=== PATIENT | male | born 1960 | race Caucasian/White ===

== ENCOUNTER 2017-11-25 22:27 | Inpatient (IN) | payer MEDICAID, OTHER ==
[2017-11-25] MEDS ORDERED: 50% Dextrose in Water 50 ML Syringe ONE (22:39)
--- NOTE | 2017-11-26 00:15 | EDM.PDOC ---
ED HPI GENERAL MEDICAL PROBLEM - General Chief Complaint: Neurological Problem Stated Complaint: [facility] Time Seen by Provider: 11/25/17 23:15 - History of Present Illness INITIAL COMMENTS - FREE TEXT/NARRATIVE: documentation dictated Treatments BODY PAINTER: Reports: IV/IO, Oxygen, Other (see below) Other Treatments BODY PAINTER: narcan - Related Data Allergies Allergy/AdvReac Type Severity Reaction Status Date / Time Penicillins Allergy Cannot Verified 11/25/17 22:33 Remember Home Meds: Home Meds ALPRAZolam [Xanax] 1 mg PO BEDTIME 11/30/13 [History] Hydrocodone/Acetaminophen [Hydrocodon-Acetaminophn 10-325] 1 - 2 tab PO Q6H PRN 11/30/13 [History] Hydrocodone/Acetaminophen [Hydrocodone-Acetaminophen 5-325] 1 each PO Q6HR PRN # 20 tablet 11/30/13 [Rx] Past Medical History Other HEENT History: unknown Other Cardiovascular History: unknown Other Respiratory History: unknown Other Gastrointestinal History: unknwon Social & Family History - Tobacco Use Smoking Status *Q: Unknown Ever Smoked ED ROS GENERAL - Review of Systems Review Of Systems: Unable To Obtain - Physical Exam Exam: See Below Course - Vital Signs Last Recorded V/S: Last Vital Signs Temp 37.2 C 11/25/17 22:33 Pulse 84 11/26/17 00:01 Resp 35 H 11/26/17 00:01 BP 157/116 H 11/26/17 00:00 Pulse Ox 100 11/26/17 00:01 - Orders/Labs/Meds Orders: Active Orders 24 hr Category Date Time Status Cervical Spine wo Cont [CT] Routine Exams 11/25/17 22:55 Taken Chest 1V Frontal [CR] Stat Exams 11/25/17 23:00 Taken Head wo Cont [CT] Routine Exams 11/25/17 22:55 Taken Labs: Laboratory Tests 11/25/17 11/25/17 11/25/17 Range/Units 22:30 22:30 22:30 WBC (4.23-9.07) K/mm3 RBC (4.63-6.08) M/mm3 Hgb (13.7-17.5) gm/L Hct (40.1-51.0) % MCV (79.0-92.2) fl MCH (25.7-32.2) pg MCHC (32.2-35.5) g/dl RDW Std Deviation (35.1-43.9) fL Plt Count (163-337) K/mm3 MPV (9.4-12.3) fl Neutrophils % (Manual) (40-60) % Band Neutrophils % (0-10) % Lymphocytes % (Manual) (20-40) % Atypical Lymphs % % Monocytes % (Manual) (2-10) % Eosinophils % (Manual) (0.8-7.0) % Basophils % (Manual) (0.2-1.2) Platelet Estimate Plt Morphology Comment RBC Morph Comment PT (9.5-12.1) SECONDS INR APTT (24-31) SECONDS Sodium 144 (136-145) mEq/L Potassium 3.8 (3.5-5.1) mEq/L Chloride 109 H (98-107) mEq/L Carbon Dioxide 27 (21-32) mEq/L Anion Gap 11.8 (5-15) BUN 18 (7-18) mg/dL Creatinine 1.1 (0.7-1.3) mg/dL Est Cr Clr Drug Dosing 75.88 mL/min Estimated GFR (MDRD) > 60 (>60) mL/min BUN/Creatinine Ratio 16.4 (14-18) Glucose 74 (74-106) mg/dL POC Glucose (70-105) mg/dL Lactic Acid (0.4-2.0) mmol/L Calcium 8.8 (8.5-10.1) mg/dL Total Bilirubin 0.3 (0.2-1.0) mg/dL AST 23 (15-37) U/L ALT 30 (16-63) U/L Alkaline Phosphatase 76 (46-116) U/L Total Protein 6.6 (6.4-8.2) g/dl Albumin 3.8 (3.4-5.0) g/dl Globulin 2.8 gm/dL Albumin/Globulin Ratio 1.4 (1-2) Urine Color Yellow (Yellow) Urine Appearance Slt cloudy H (Clear) Urine pH 6.5 (5.0-8.0) Ur Specific [place] > or = 1.030 (1.005-1.030) Urine Protein Trace H (Negative) Urine Glucose (UA) Negative (Negative) Urine Ketones Negative (Negative) Urine Occult Blood Negative (Negative) Urine Nitrite Negative (Negative) Urine Bilirubin Negative (Negative) Urine Urobilinogen 0.2 (0.2-1.0) Ur Leukocyte Esterase Negative (Negative) Urine Opiates Screen Negative (NEGATIVE) Ur Buprenorphine Scrn Negative (NEGATIVE) Ur Oxycodone Screen Presumptive positive H (NEGATIVE) Urine Methadone Screen Negative (NEGATIVE) Ur Propoxyphene Screen Negative (NEGATIVE) Ur Barbiturates Screen Negative (NEGATIVE) Ur Tricyclics Screen Negative (NEGATIVE) Ur Phencyclidine Scrn Negative (NEGATIVE) Ur Amphetamine Screen Negative (NEGATIVE) U Methamphetamines Scrn Negative (NEGATIVE) U Benzodiazepines Scrn Presumptive positive H (NEGATIVE) U Cocaine Metab Screen Negative (NEGATIVE) U Marijuana (THC) Screen Negative (NEGATIVE) Ethyl Alcohol 0.00 (0.00) gm% 11/25/17 11/25/17 11/25/17 Range/Units 22:30 22:30 22:35 WBC 6.98 (4.23-9.07) K/mm3 RBC 4.59 L (4.63-6.08) M/mm3 Hgb 14.0 (13.7-17.5) gm/L Hct 42.1 (40.1-51.0) % MCV 91.7 (79.0-92.2) fl MCH 30.5 (25.7-32.2) pg MCHC 33.3 (32.2-35.5) g/dl RDW Std Deviation 44.1 H (35.1-43.9) fL Plt Count 278 (163-337) K/mm3 MPV 9.5 (9.4-12.3) fl Neutrophils % (Manual) 66 H (40-60) % Band Neutrophils % 0 (0-10) % Lymphocytes % (Manual) 22 (20-40) % Atypical Lymphs % 0 % Monocytes % (Manual) 6 (2-10) % Eosinophils % (Manual) 6 (0.8-7.0) % Basophils % (Manual) 0 L (0.2-1.2) Platelet Estimate Adequate Plt Morphology Comment Normal RBC Morph Comment Normal PT 11.0 (9.5-12.1) SECONDS INR 1.01 APTT 25 (24-31) SECONDS Sodium (136-145) mEq/L Potassium (3.5-5.1) mEq/L Chloride (98-107) mEq/L Carbon Dioxide (21-32) mEq/L Anion Gap (5-15) BUN (7-18) mg/dL Creatinine (0.7-1.3) mg/dL Est Cr Clr Drug Dosing mL/min Estimated GFR (MDRD) (>60) mL/min BUN/Creatinine Ratio (14-18) Glucose (74-106) mg/dL POC Glucose 64 L (70-105) mg/dL Lactic Acid (0.4-2.0) mmol/L Calcium (8.5-10.1) mg/dL Total Bilirubin (0.2-1.0) mg/dL AST (15-37) U/L ALT (16-63) U/L Alkaline Phosphatase (46-116) U/L Total Protein (6.4-8.2) g/dl Albumin (3.4-5.0) g/dl Globulin gm/dL Albumin/Globulin Ratio (1-2) Urine Color (Yellow) Urine Appearance (Clear) Urine pH (5.0-8.0) Ur Specific [place] (1.005-1.030) Urine Protein (Negative) Urine Glucose (UA) (Negative) Urine Ketones (Negative) Urine Occult Blood (Negative) Urine Nitrite (Negative) Urine Bilirubin (Negative) Urine Urobilinogen (0.2-1.0) Ur Leukocyte Esterase (Negative) Urine Opiates Screen (NEGATIVE) Ur Buprenorphine Scrn (NEGATIVE) Ur Oxycodone Screen (NEGATIVE) Urine Methadone Screen (NEGATIVE) Ur Propoxyphene Screen (NEGATIVE) Ur Barbiturates Screen (NEGATIVE) Ur Tricyclics Screen (NEGATIVE) Ur Phencyclidine Scrn (NEGATIVE) Ur Amphetamine Screen (NEGATIVE) U Methamphetamines Scrn (NEGATIVE) U Benzodiazepines Scrn (NEGATIVE) U Cocaine Metab Screen (NEGATIVE) U Marijuana (THC) Screen (NEGATIVE) Ethyl Alcohol (0.00) gm% 11/25/17 Range/Units 23:05 WBC (4.23-9.07) K/mm3 RBC (4.63-6.08) M/mm3 Hgb (13.7-17.5) gm/L Hct (40.1-51.0) % MCV (79.0-92.2) fl MCH (25.7-32.2) pg MCHC (32.2-35.5) g/dl RDW Std Deviation (35.1-43.9) fL Plt Count (163-337) K/mm3 MPV (9.4-12.3) fl Neutrophils % (Manual) (40-60) % Band Neutrophils % (0-10) % Lymphocytes % (Manual) (20-40) % Atypical Lymphs % % Monocytes % (Manual) (2-10) % Eosinophils % (Manual) (0.8-7.0) % Basophils % (Manual) (0.2-1.2) Platelet Estimate Plt Morphology Comment RBC Morph Comment PT (9.5-12.1) SECONDS INR APTT (24-31) SECONDS Sodium (136-145) mEq/L Potassium (3.5-5.1) mEq/L Chloride (98-107) mEq/L Carbon Dioxide (21-32) mEq/L Anion Gap (5-15) BUN (7-18) mg/dL Creatinine (0.7-1.3) mg/dL Est Cr Clr Drug Dosing mL/min Estimated GFR (MDRD) (>60) mL/min BUN/Creatinine Ratio (14-18) Glucose (74-106) mg/dL POC Glucose (70-105) mg/dL Lactic Acid 1.7 (0.4-2.0) mmol/L Calcium (8.5-10.1) mg/dL Total Bilirubin (0.2-1.0) mg/dL AST (15-37) U/L ALT (16-63) U/L Alkaline Phosphatase (46-116) U/L Total Protein (6.4-8.2) g/dl Albumin (3.4-5.0) g/dl Globulin gm/dL Albumin/Globulin Ratio (1-2) Urine Color (Yellow) Urine Appearance (Clear) Urine pH (5.0-8.0) Ur Specific [place] (1.005-1.030) Urine Protein (Negative) Urine Glucose (UA) (Negative) Urine Ketones (Negative) Urine Occult Blood (Negative) Urine Nitrite (Negative) Urine Bilirubin (Negative) Urine Urobilinogen (0.2-1.0) Ur Leukocyte Esterase (Negative) Urine Opiates Screen (NEGATIVE) Ur Buprenorphine Scrn (NEGATIVE) Ur Oxycodone Screen (NEGATIVE) Urine Methadone Screen (NEGATIVE) Ur Propoxyphene Screen (NEGATIVE) Ur Barbiturates Screen (NEGATIVE) Ur Tricyclics Screen (NEGATIVE) Ur Phencyclidine Scrn (NEGATIVE) Ur Amphetamine Screen (NEGATIVE) U Methamphetamines Scrn (NEGATIVE) U Benzodiazepines Scrn (NEGATIVE) U Cocaine Metab Screen (NEGATIVE) U Marijuana (THC) Screen (NEGATIVE) Ethyl Alcohol (0.00) gm% Meds: Medications Discontinued Medications Generic Name Dose Route Start Last Admin Trade Name Freq PRN Reason Stop Dose Admin Dextrose/Water Confirm 11/25/17 22:39 Dextrose 50% In Water Administered 11/25/17 22:40 Dose 50 ml .ROUTE .STK-MED ONE Propofol Confirm 11/25/17 22:54 Diprivan 100 Ml Administered 11/25/17 22:55 Dose 100 mls @ as directed .ROUTE .STK-MED ONE Departure - Departure Time of Disposition: 00:15 Disposition: Admitted As Inpatient 67 Condition: Poor Clinical Impression: Coma of unknown cause - Discharge Information *PRESCRIPTION DRUG MONITORING PROGRAM REVIEWED*: Not Applicable *COPY OF PRESCRIPTION DRUG MONITORING REPORT IN PATIENT ODALYS: Not Applicable Referrals: PCP,None [Primary Care Provider] - - My Orders Last 24 Hours: My Active Orders 11/25/17 22:55 Cervical Spine wo Cont [CT] Routine Head wo Cont [CT] Routine 11/25/17 23:00 Chest 1V Frontal [CR] Stat - Assessment/Plan Last 24 Hours: My Active Orders 11/25/17 22:55 Cervical Spine wo Cont [CT] Routine Head wo Cont [CT] Routine 11/25/17 23:00 Chest 1V Frontal [CR] Stat
[2017-11-26] MEDS ORDERED: Albuterol/Ipratropium 3.0-0.5 MG/3 ML Neb Soln NEB PRN (00:27)
[2017-11-26] MEDS ORDERED: Acetaminophen 325 MG Tab PO PRN (00:27)
[2017-11-26] MEDS ORDERED: Polyethylene Glycol 3350 Powder 17 GM Packet PO PRN (00:27)
[2017-11-26] MEDS ORDERED: Promethazine 12.5 MG in Sodium Chloride 0.9% 50 ML IV PRN (00:27)
[2017-11-26] MEDS ORDERED: Magnesium Hydroxide 400 MG/5 ML Susp 30 ML Cup PO PRN (00:27)
[2017-11-26] MEDS ORDERED: Docusate Sodium 100 MG Cap PO PRN (00:27)
[2017-11-26] MEDS ORDERED: Ondansetron 4 MG/2 ML SDV IV PRN (00:27)
[2017-11-26] MEDS ORDERED: HYDROmorphone 0.5 MG/0.5 ML Syringe IVPUSH PRN (00:27)
[2017-11-26] MEDS ORDERED: LORazepam 2 MG/ML SDV IV PRN (00:27)
[2017-11-26] MEDS ORDERED: Bisacodyl 5 MG Tab PO PRN (00:27)
[2017-11-26] MEDS ORDERED: Metoprolol Tartrate 5 MG/5 ML SDV IVPUSH PRN (00:30)
[2017-11-26] MEDS ORDERED: Nicotine 21 MG/24 Hr Patch TRDERM PRN ×2 (00:30→00:33)
[2017-11-26] MEDS ORDERED: hydrALAZINE 20 MG/ML SDV IVPUSH PRN (00:30)
[2017-11-26] MEDS ORDERED: Sodium Chloride 0.9% 1,000 ML IV ONE (00:32)
[2017-11-26] MEDS ORDERED: cloNIDine 0.1 MG Tab PO PRN (00:33)
[2017-11-26] MEDS ORDERED: Haloperidol Lactate 5 MG/ML SDV IM PRN (00:33)
--- NOTE | 2017-11-26 00:40 | PCM.HP ---
H&P History of Present Illness - General Date of Service: 11/26/17 Admit Problem/Dx: Admission Diagnosis/Problem Admission Diagnosis/Problem Coma Source of Information: Provider History Limitations: Reports: Altered Mental Status - History of Present Illness Initial Comments - Free Text/Narative: This is a 56 yo with past medical hx/o anxiety and chronic pain syndrome who was brought in by EMS found unresponsive outside his hotel. In ED, he was difficult to arouse and unable to protect to his airway and therefore he was intubated currently being bagged for respiratory support. His initial labs in ED shows in ED shows a fairly unremarkable CBC and CMP. His UA is not suggestive of UTI. His UDS is presumptive positive for Oxycodone and Benzodiazepine. No family is present at bedside and HPI is very minimal. Patient will be placed on mechanical ventilation and he will be moved to unit for further management. - Related Data Allergies/Adverse Reactions: Allergies Allergy/AdvReac Type Severity Reaction Status Date / Time Penicillins Allergy Cannot Verified 11/25/17 22:33 Remember Home Medications: Home Meds ALPRAZolam [Xanax] 1 mg PO BEDTIME 11/30/13 [History] Hydrocodone/Acetaminophen [Hydrocodon-Acetaminophn 10-325] 1 - 2 tab PO Q6H PRN 11/30/13 [History] Hydrocodone/Acetaminophen [Hydrocodone-Acetaminophen 5-325] 1 each PO Q6HR PRN # 20 tablet 11/30/13 [Rx] oxyCODONE HCl/Acetaminophen [Oxycodone-Acetaminophen 10-300] 1 each PO QID 11/26 [History] Past Medical History Other HEENT History: unknown Other Cardiovascular History: unknown Other Respiratory History: unknown Other Gastrointestinal History: unknwon Social & Family History - Tobacco Use Smoking Status *Q: Unknown Ever Smoked H&P Review of Systems - Review of Systems: Review Of Systems: Unable To Obtain Exam - Exam Exam: See Below - Vital Signs Vital Signs: Last Vital Signs Temp 37.2 C 11/25/17 22:33 Pulse 84 11/26/17 00:01 Resp 35 H 11/26/17 00:01 BP 157/116 H 11/26/17 00:00 Pulse Ox 100 11/26/17 00:01 Weight: 72.575 kg - Exam General: Obtunded HEENT: Pupils Equal, Pupils Reactive Lungs: Normal Respiratory Effort, Decreased Breath Sounds Cardiovascular: Regular Rate, Regular Rhythm GI/Abdominal Exam: Normal Bowel Sounds, Soft (Male) Exam: Other (indwelling harris catheter) Back Exam: Other (deferred) Extremities: Normal Inspection, Normal Range of Motion, No Pedal Edema, Normal Capillary Refill Peripheral Pulses: 3+: Posterior Tibial (L), Posterior Tibial (R), Dorsalis Pedis (L), Dorsalis Pedis (R) Skin: Warm, Dry, Intact Neuro Extensive - Mental Status: Other (sedated and intubated) Neuro Extensive - Motor, Sensory, Reflexes: Other (sedated and intubated) Psychiatric: Other (sedated and intubated) - Patient Data Lab Results Last 24 hrs: Laboratory Results - last 24 hr 11/25/17 11/25/17 11/25/17 Range/Units 22:30 22:30 22:30 WBC (4.23-9.07) K/mm3 RBC (4.63-6.08) M/mm3 Hgb (13.7-17.5) gm/L Hct (40.1-51.0) % MCV (79.0-92.2) fl MCH (25.7-32.2) pg MCHC (32.2-35.5) g/dl RDW Std Deviation (35.1-43.9) fL Plt Count (163-337) K/mm3 MPV (9.4-12.3) fl Neutrophils % (Manual) (40-60) % Band Neutrophils % (0-10) % Lymphocytes % (Manual) (20-40) % Atypical Lymphs % % Monocytes % (Manual) (2-10) % Eosinophils % (Manual) (0.8-7.0) % Basophils % (Manual) (0.2-1.2) Platelet Estimate Plt Morphology Comment RBC Morph Comment PT (9.5-12.1) SECONDS INR APTT (24-31) SECONDS Sodium 144 (136-145) mEq/L Potassium 3.8 (3.5-5.1) mEq/L Chloride 109 H (98-107) mEq/L Carbon Dioxide 27 (21-32) mEq/L Anion Gap 11.8 (5-15) BUN 18 (7-18) mg/dL Creatinine 1.1 (0.7-1.3) mg/dL Est Cr Clr Drug Dosing 75.88 mL/min Estimated GFR (MDRD) > 60 (>60) mL/min BUN/Creatinine Ratio 16.4 (14-18) Glucose 74 (74-106) mg/dL POC Glucose (70-105) mg/dL Lactic Acid (0.4-2.0) mmol/L Calcium 8.8 (8.5-10.1) mg/dL Total Bilirubin 0.3 (0.2-1.0) mg/dL AST 23 (15-37) U/L ALT 30 (16-63) U/L Alkaline Phosphatase 76 (46-116) U/L Total Protein 6.6 (6.4-8.2) g/dl Albumin 3.8 (3.4-5.0) g/dl Globulin 2.8 gm/dL Albumin/Globulin Ratio 1.4 (1-2) Urine Color Yellow (Yellow) Urine Appearance Slt cloudy H (Clear) Urine pH 6.5 (5.0-8.0) Ur Specific Watson > or = 1.030 (1.005-1.030) Urine Protein Trace H (Negative) Urine Glucose (UA) Negative (Negative) Urine Ketones Negative (Negative) Urine Occult Blood Negative (Negative) Urine Nitrite Negative (Negative) Urine Bilirubin Negative (Negative) Urine Urobilinogen 0.2 (0.2-1.0) Ur Leukocyte Esterase Negative (Negative) Urine Opiates Screen Negative (NEGATIVE) Ur Buprenorphine Scrn Negative (NEGATIVE) Ur Oxycodone Screen Presumptive positive H (NEGATIVE) Urine Methadone Screen Negative (NEGATIVE) Ur Propoxyphene Screen Negative (NEGATIVE) Ur Barbiturates Screen Negative (NEGATIVE) Ur Tricyclics Screen Negative (NEGATIVE) Ur Phencyclidine Scrn Negative (NEGATIVE) Ur Amphetamine Screen Negative (NEGATIVE) U Methamphetamines Scrn Negative (NEGATIVE) U Benzodiazepines Scrn Presumptive positive H (NEGATIVE) U Cocaine Metab Screen Negative (NEGATIVE) U Marijuana (THC) Screen Negative (NEGATIVE) Ethyl Alcohol 0.00 (0.00) gm% 11/25/17 11/25/17 11/25/17 Range/Units 22:30 22:30 22:35 WBC 6.98 (4.23-9.07) K/mm3 RBC 4.59 L (4.63-6.08) M/mm3 Hgb 14.0 (13.7-17.5) gm/L Hct 42.1 (40.1-51.0) % MCV 91.7 (79.0-92.2) fl MCH 30.5 (25.7-32.2) pg MCHC 33.3 (32.2-35.5) g/dl RDW Std Deviation 44.1 H (35.1-43.9) fL Plt Count 278 (163-337) K/mm3 MPV 9.5 (9.4-12.3) fl Neutrophils % (Manual) 66 H (40-60) % Band Neutrophils % 0 (0-10) % Lymphocytes % (Manual) 22 (20-40) % Atypical Lymphs % 0 % Monocytes % (Manual) 6 (2-10) % Eosinophils % (Manual) 6 (0.8-7.0) % Basophils % (Manual) 0 L (0.2-1.2) Platelet Estimate Adequate Plt Morphology Comment Normal RBC Morph Comment Normal PT 11.0 (9.5-12.1) SECONDS INR 1.01 APTT 25 (24-31) SECONDS Sodium (136-145) mEq/L Potassium (3.5-5.1) mEq/L Chloride (98-107) mEq/L Carbon Dioxide (21-32) mEq/L Anion Gap (5-15) BUN (7-18) mg/dL Creatinine (0.7-1.3) mg/dL Est Cr Clr Drug Dosing mL/min Estimated GFR (MDRD) (>60) mL/min BUN/Creatinine Ratio (14-18) Glucose (74-106) mg/dL POC Glucose 64 L (70-105) mg/dL Lactic Acid (0.4-2.0) mmol/L Calcium (8.5-10.1) mg/dL Total Bilirubin (0.2-1.0) mg/dL AST (15-37) U/L ALT (16-63) U/L Alkaline Phosphatase (46-116) U/L Total Protein (6.4-8.2) g/dl Albumin (3.4-5.0) g/dl Globulin gm/dL Albumin/Globulin Ratio (1-2) Urine Color (Yellow) Urine Appearance (Clear) Urine pH (5.0-8.0) Ur Specific Watson (1.005-1.030) Urine Protein (Negative) Urine Glucose (UA) (Negative) Urine Ketones (Negative) Urine Occult Blood (Negative) Urine Nitrite (Negative) Urine Bilirubin (Negative) Urine Urobilinogen (0.2-1.0) Ur Leukocyte Esterase (Negative) Urine Opiates Screen (NEGATIVE) Ur Buprenorphine Scrn (NEGATIVE) Ur Oxycodone Screen (NEGATIVE) Urine Methadone Screen (NEGATIVE) Ur Propoxyphene Screen (NEGATIVE) Ur Barbiturates Screen (NEGATIVE) Ur Tricyclics Screen (NEGATIVE) Ur Phencyclidine Scrn (NEGATIVE) Ur Amphetamine Screen (NEGATIVE) U Methamphetamines Scrn (NEGATIVE) U Benzodiazepines Scrn (NEGATIVE) U Cocaine Metab Screen (NEGATIVE) U Marijuana (THC) Screen (NEGATIVE) Ethyl Alcohol (0.00) gm% 11/25/17 Range/Units 23:05 WBC (4.23-9.07) K/mm3 RBC (4.63-6.08) M/mm3 Hgb (13.7-17.5) gm/L Hct (40.1-51.0) % MCV (79.0-92.2) fl MCH (25.7-32.2) pg MCHC (32.2-35.5) g/dl RDW Std Deviation (35.1-43.9) fL Plt Count (163-337) K/mm3 MPV (9.4-12.3) fl Neutrophils % (Manual) (40-60) % Band Neutrophils % (0-10) % Lymphocytes % (Manual) (20-40) % Atypical Lymphs % % Monocytes % (Manual) (2-10) % Eosinophils % (Manual) (0.8-7.0) % Basophils % (Manual) (0.2-1.2) Platelet Estimate Plt Morphology Comment RBC Morph Comment PT (9.5-12.1) SECONDS INR APTT (24-31) SECONDS Sodium (136-145) mEq/L Potassium (3.5-5.1) mEq/L Chloride (98-107) mEq/L Carbon Dioxide (21-32) mEq/L Anion Gap (5-15) BUN (7-18) mg/dL Creatinine (0.7-1.3) mg/dL Est Cr Clr Drug Dosing mL/min Estimated GFR (MDRD) (>60) mL/min BUN/Creatinine Ratio (14-18) Glucose (74-106) mg/dL POC Glucose (70-105) mg/dL Lactic Acid 1.7 (0.4-2.0) mmol/L Calcium (8.5-10.1) mg/dL Total Bilirubin (0.2-1.0) mg/dL AST (15-37) U/L ALT (16-63) U/L Alkaline Phosphatase (46-116) U/L Total Protein (6.4-8.2) g/dl Albumin (3.4-5.0) g/dl Globulin gm/dL Albumin/Globulin Ratio (1-2) Urine Color (Yellow) Urine Appearance (Clear) Urine pH (5.0-8.0) Ur Specific Watson (1.005-1.030) Urine Protein (Negative) Urine Glucose (UA) (Negative) Urine Ketones (Negative) Urine Occult Blood (Negative) Urine Nitrite (Negative) Urine Bilirubin (Negative) Urine Urobilinogen (0.2-1.0) Ur Leukocyte Esterase (Negative) Urine Opiates Screen (NEGATIVE) Ur Buprenorphine Scrn (NEGATIVE) Ur Oxycodone Screen (NEGATIVE) Urine Methadone Screen (NEGATIVE) Ur Propoxyphene Screen (NEGATIVE) Ur Barbiturates Screen (NEGATIVE) Ur Tricyclics Screen (NEGATIVE) Ur Phencyclidine Scrn (NEGATIVE) Ur Amphetamine Screen (NEGATIVE) U Methamphetamines Scrn (NEGATIVE) U Benzodiazepines Scrn (NEGATIVE) U Cocaine Metab Screen (NEGATIVE) U Marijuana (THC) Screen (NEGATIVE) Ethyl Alcohol (0.00) gm% Result Diagrams: 11/26/17 05:35 11/26/17 05:35 Problem List Initiated/Reviewed/Updated: Yes Orders Last 24hrs: Active Orders 24 hr Category Date Time Status Admission Status [Patient Status] [ADT] Routine ADT 11/26/17 00:17 Active Cardiac Monitoring [RC] CONTINUOUS Care 11/26/17 00:28 Ordered Height and Weight [RC] DAILY Care 11/26/17 00:27 Ordered Intake and Output [RC] QSHIFT Care 11/26/17 00:28 Ordered Notify Provider [RC] PRN Care 11/26/17 00:33 Ordered Oxygen Therapy [RC] PRN Care 11/26/17 00:27 Ordered RASS Sedation Scale [RC] ASDIRECTED Care 11/26/17 00:31 Ordered RT Aerosol Therapy [RC] ASDIRECTED Care 11/26/17 00:29 Ordered Up With Assistance [RC] ASDIRECTED Care 11/26/17 00:27 Ordered Up ad Omriah [RC] ASDIRECTED Care 11/26/17 00:27 Ordered VTE/DVT Education [RC] PER UNIT ROUTINE Care 11/26/17 00:27 Ordered Vital Signs [RC] Q4H Care 11/26/17 00:27 Ordered Consult to Case Management [CONS] Routine Cons 11/26/17 00:27 Ordered Consult to Research Investigator [CONS] Routine Cons 11/26/17 00:27 Ordered Consult to Spiritual Care [CONS] Routine Cons 11/26/17 00:27 Ordered Respiratory Care Assess and Treatment [CONS] Routine Cons 11/26/17 00:27 Ordered Nothing per Oral Now Diet [DIET] Diet 11/26/17 Breakfast Ordered Cervical Spine wo Cont [CT] Routine Exams 11/25/17 22:55 Taken Chest 1V Frontal [CR] Stat Exams 11/25/17 23:00 Taken Head wo Cont [CT] Routine Exams 11/25/17 22:55 Taken CBC WITH AUTO DIFF [HEME] AM Lab 11/26/17 05:11 Ordered CBC WITH AUTO DIFF [HEME] AM Lab 11/27/17 05:11 Ordered CBC WITH AUTO DIFF [HEME] AM Lab 11/28/17 05:11 Ordered CBC WITH AUTO DIFF [HEME] AM Lab 11/29/17 05:11 Ordered CBC WITH AUTO DIFF [HEME] AM Lab 11/30/17 05:11 Ordered COMPREHENSIVE METABOLIC PN,CMP [CHEM] AM Lab 11/26/17 05:11 Ordered MAGNESIUM [CHEM] AM Lab 11/26/17 05:11 Ordered MAGNESIUM [CHEM] AM Lab 11/27/17 05:11 Ordered MAGNESIUM [CHEM] AM Lab 11/28/17 05:11 Ordered MAGNESIUM [CHEM] AM Lab 11/29/17 05:11 Ordered MAGNESIUM [CHEM] AM Lab 11/30/17 05:11 Ordered Acetaminophen [Tylenol] Med 11/26/17 00:27 Ordered 650 mg PO Q4H PRN Acetaminophen/HYDROcodone [[place] 325-5 MG] Med 11/26/17 00:27 Ordered 1 tab PO Q4H PRN Albuterol/Ipratropium [DuoNeb 3.0-0.5 MG/3 ML] Med 11/26/17 00:27 Ordered 3 ml NEB Q4H PRN Bisacodyl [Dulcolax] Med 11/26/17 00:27 Ordered 5 mg PO DAILY PRN Docusate Sodium [Colace] Med 11/26/17 00:27 Ordered 100 mg PO BID PRN Docusate Sodium/Sennosides [Senna Plus] Med 11/26/17 00:27 Ordered 1 tab PO BID PRN Enoxaparin [Lovenox] Med 11/26/17 09:00 Ordered 30 mg SUBCUT DAILY HYDROmorphone [Dilaudid] Med 11/26/17 00:27 Ordered 0.25 mg IVPUSH Q2H PRN Haloperidol Lactate [Haldol] Med 11/26/17 00:33 Ordered 2 mg IM Q4H PRN LORazepam [Ativan] Med 11/26/17 00:27 Ordered 1 mg IV Q6H PRN LORazepam [Ativan] Med 11/26/17 00:30 Ordered 2 mg IVPUSH Q4H PRN Lactated Ringers @ 125 MLS/HR(1000ml) Med 11/26/17 00:30 Ordered Lactated Ringers [Ringers, Lactated] 1,000 ml IV ASDIRECTED Magnesium Hydroxide [Milk of Magnesia] Med 11/26/17 00:27 Ordered 30 ml PO Q12H PRN Magnesium Rep Pharmacy to Dose [Pharmacy to Dose - Med 11/26/17 00:30 Ordered Magnesium Replacement] 1 dose .XX ASDIRECTED Metoprolol Tartrate [Lopressor] Med 11/26/17 00:30 Ordered 5 mg IVPUSH Q4H PRN Nicotine [Habitrol] Med 11/26/17 00:30 Ordered 21 mg TRDERM DAILY PRN Nicotine [Habitrol] Med 11/26/17 00:33 Ordered 21 mg TRDERM DAILY PRN Ondansetron [Zofran] Med 11/26/17 00:27 Ordered 4 mg IV Q6H PRN Pantoprazole [ProTONIX IV] 80 mg Med 11/26/17 00:45 Ordered Sodium Chloride 0.9% [Normal Saline] 100 ml IV Q10H Polyethylene Glycol 3350 [MiraLAX] Med 11/26/17 00:27 Ordered 17 gm PO DAILY PRN Potassium Rep Pharmacy to Dose [Pharmacy to Dose - Med 11/26/17 00:30 Ordered Potassium Replacement] 1 dose .XX ASDIRECTED Promethazine [Phenergan] 12.5 mg Med 11/26/17 00:27 Ordered Sodium Chloride 0.9% [Normal Saline] 50 ml IV Q6H Sodium Chloride 0.9% [Normal Saline] 1,000 ml Med 11/26/17 00:32 Ordered IV ONETIME cloNIDine [Catapres] Med 11/26/17 00:33 Ordered 0.1 mg PO Q4H PRN hydrALAZINE [Apresoline] Med 11/26/17 00:30 Ordered 20 mg IVPUSH Q4H PRN Seizure Precautions [OM.PC] Routine Oth 11/26/17 00:33 Ordered Resuscitation Status Routine Resus Stat 11/26/17 00:27 Ordered Medication Orders Acetaminophen (Tylenol) 650 mg PO Q4H PRN PRN Reason: Pain (Mild 1-3)/fever Hydrocodone Bitart/Acetaminophen ([place] 325-5 Mg) 1 tab PO Q4H PRN PRN Reason: Pain (moderate 4-6) Albuterol/Ipratropium (Duoneb 3.0-0.5 Mg/3 Ml) 3 ml NEB Q4H PRN PRN Reason: Shortness Of Breath/wheezing Bisacodyl (Dulcolax) 5 mg PO DAILY PRN PRN Reason: Constipation Docusate Sodium (Colace) 100 mg PO BID PRN PRN Reason: Constipation Enoxaparin Sodium (Lovenox) 30 mg SUBCUT DAILY JUSTIN Hydralazine HCl (Apresoline) 20 mg IVPUSH Q4H PRN PRN Reason: Hypertension Hydromorphone HCl (Dilaudid) 0.25 mg IVPUSH Q2H PRN PRN Reason: Pain (severe 7-10) Lactated Ringer's (Ringers, Lactated) 1,000 mls @ 125 mls/hr IV ASDIRECTED JUSTIN Promethazine HCl 12.5 mg/ (Sodium Chloride) 50.5 mls @ 100 mls/hr IV Q6H PRN PRN Reason: Nausea/Vomiting Pantoprazole Sodium 80 mg/ (Sodium Chloride) 100 mls @ 25 mls/hr IV Q10H JUSTIN Lorazepam (Ativan) 1 mg IV Q6H PRN PRN Reason: Anxiety Lorazepam (Ativan) 2 mg IVPUSH Q4H PRN PRN Reason: Seizures Magnesium Hydroxide (Milk Of Magnesia) 30 ml PO Q12H PRN PRN Reason: Constipation Magnesium Sulfate (Pharmacy To Dose - Magnesium Replacement) 1 dose .XX ASDIRECTED [facility] Metoprolol Tartrate (Lopressor) 5 mg IVPUSH Q4H PRN PRN Reason: Tachycardia Nicotine (Habitrol) 21 mg TRDERM DAILY PRN PRN Reason: Nicotine Dependence Ondansetron HCl (Zofran) 4 mg IV Q6H PRN PRN Reason: Nausea/Vomiting Polyethylene Glycol (Miralax) 17 gm PO DAILY PRN PRN Reason: Constipation Potassium Chloride (Pharmacy To Dose - Potassium Replacement) 1 dose .XX ASDIRECTED [facility] Senna/Docusate Sodium (Senna Plus) 1 tab PO BID PRN PRN Reason: Constipation Assessment/Plan Comment:: Assessment/Plan: Acute: AMS - Probable drug overdose vs Seizure - Current on Mechanical Vent Respiratory Failure - Unable to protect airway due to AMS - Intubated in ED now on Mechanical Vent - AB.32/48.9/6.34 - Vent setting: AC 6 ml, RR14, Fi02 30% - COLE of -3; Profopol and Fentanyl drip - Extubation in AM Possible Seizure - Limited Hx/o at this point - No family or Friends at beside Plan: Admit to ICU Routine AM LAbs Hold Home Meds Vent Protocol RT Consult Seizure Precaution SW/CM for d/c planning Code status: 1
[2017-11-26] MEDS ORDERED: Etomidate 2 MG/ML 20 ML SDV IVPUSH ONE (01:00)
[2017-11-26] MEDS ORDERED: Midazolam 1 MG/ML 5 ML SDV ONE (01:00)
[2017-11-26] MEDS ORDERED: Succinylcholine 200 MG/10 ML MDV ONE (01:00)
[2017-11-26] MEDS ORDERED: Propofol 200 MG/20 ML SDV ONE (01:00)
[2017-11-26] MEDS: Potassium Chloride 20 MEQ Tab.ER PO SCH ×2 (01:46→03:23)
[2017-11-26] MEDS: Pantoprazole 80 MG in Sodium Chloride 0.9% 100 ML IV SCH ×3 (01:59→11:07)
[2017-11-26] MEDS ORDERED: fentaNYL 2,500 MCG in Sodium Chloride 0.9% 200 ML IV SCH (02:45)
[2017-11-26] MEDS: Lactated Ringers 1,000 ML IV SCH ×3 (02:55→17:14)
[2017-11-26] MEDS: Potassium Chloride 10 MEQ in Premix Bag 1 BAG IV SCH ×4 (03:05→05:56)
[2017-11-26] MEDS: Enoxaparin 40 MG/0.4 ML Syringe SUBCUT SCH (08:25)
[2017-11-26] MEDS: REMOVE NICOTINE TRDERM SCH (09:16)
--- NOTE | 2017-11-26 13:22 | PCM.SN ---
- Free Text/Narrative Note: Patient seen and examined at bedside. He is waking up and fighting off his tube. We decided to have him come off on ventilation and he did successfully at about 1304. It appears he may have an acute seizure and according to his he carries a hx/o it in the past. I planned on doing EEG but according to RT there will be no one in [place] to read it. Given that this is his second episode, he may benefit with maintenance medications at this point but I will try to consult Neurology for further input. EEG then has to be done outpatient next week.
--- NOTE | 2017-11-26 13:22 | ER ---
REASON FOR EMERGENCY ROOM VISIT: Unresponsive. HISTORY OF PRESENT ILLNESS: This 56-year-old man was found unresponsive outside a local hotel. There was some speculation that he may have had a seizure, but no one had actually witnessed him falling down or anything remotely resembling seizure activity. By the time paramedics arrived, he was unresponsive, but he was breathing on his own. His pupils were somewhat constricted. There was no evidence of trauma. They loaded him up on the ambulance, and he was brought to the emergency department in an unresponsive state. He had a good airway and good breath sounds on original assessment at the scene, and he was hemodynamically stable. He at the scene was not responding to any deep pain or painful stimulus at all. He did show some signs of twitching in his lower extremities primarily, but that was the extent of it. An Accu-Chek was made in the ambulance and his sugar was 74. When he arrived at the emergency department, his sugar was in the mid 60s. PAST MEDICAL HISTORY: Very little can be known about his past medical history from his medical record apart from him being seen for fractured ribs in the past. He has taken hydrocodone in the past, presumably for his rib fractures as well as Xanax, but there is no recent record of any visits here, and we know nothing about his past medical history or current medications. ALLERGIES: He is apparently allergic to penicillin. INITIAL ASSESSMENT ON ARRIVAL: He was unresponsive, but he was breathing and his airway was patent. His O2 saturations were always in the high 90s and his blood pressure was stable on arrival. Initial survey, he did have some slight gurgling of breath sounds, but his airway was patent, and he was oxygenating well. Breathing spontaneously. He had breath sounds bilaterally. His blood pressure was in the 170s over low 100s initially. His heart rate was in the 80s. He was afebrile on arrival. PHYSICAL EXAMINATION: VITAL SIGNS: As noted above. HEENT: Head is atraumatic. There is no hemotympanum. No external evidence of trauma. He was given Narcan in the field and his pupils did go to midposition and were reactive to light. Oropharynx appeared dry. There was no evidence of vomitus in his airway. He was placed on 100% initially by nasal cannula and then by mask. NECK: No external evidence of trauma. No palpable abnormalities. CHEST: Clear to auscultation with no wheezes or rhonchi. Good breath sounds bilaterally. CARDIAC: Regular rate without murmur. ABDOMEN: Nondistended. NEUROLOGIC: Pupils as noted above. They were mid-position and reactive sluggishly. There was no facial asymmetry. He did only withdraw very slightly to deep painful stimuli. He did not exhibit any decorticate or decerebrate posturing. Later on, he did attempt to withdraw from painful stimuli to his feet. FURTHER EMERGENCY ROOM COURSE: Following the administration of 20 mg of etomidate and 100 mg of succinylcholine, he was intubated without difficulty. This took place after preoxygenation with 100% O2. Subsequent to this, he was bucking the endotracheal tube. Breath sounds were good bilaterally. An orogastric tube was inserted. He was given a propofol bolus and started on an IV drip of propofol, which was adjusted accordingly, and he tended to settle down. Shortly after his arrival, we did straight cath him and a urine was sent for drug screen. Blood was sent as well. We obtained a chest x-ray, which demonstrated the ET tube needed to be advanced. It was advanced about a 1 to 1.5 cm. We did get the urine screen back, which was positive for oxycodone and benzodiazepines. Once we got him settled down with the propofol drip, his blood pressure came down from the 170 systolic to high 140s and low 150s. We proceeded at that point to obtain a CT scan of his head and neck. His head CT did not show any evidence of midline shift, space-occupying lesion, or acute bleed or edema. His neck did not show any evidence of acute injury as well. His lab returned. His CBC was unremarkable. His PT and PTT were normal. His electrolytes are normal, except his chloride was 109. His CMP demonstrated a glucose of 64, but this had been treated in the ED with 1 amp of D50, after his CMP was drawn. His urine was unremarkable. Urine toxicology was as mentioned above with oxycodone and benzodiazepines. We did obtain blood gases once he was intubated and eventually he was breathing on his own. At this point, his pH was 7.32, pCO2 of 48.9, pO2 was 634 on 100% oxygen. We did decrease the oxygen accordingly. IMPRESSION: Coma, unclear etiology. This could be an overdose or drug related. No evidence for acute stroke or trauma as an etiology. This could be a manifestation of seizure activity as well, and a postictal state could be part of this constellation. The patient's situation was discussed with Dr. London, who agreed to admit him to the ICU and assume care. NAOMI /[id number] MTDD
--- NOTE | 2017-11-26 13:56 | CR ---
Chest: Frontal view of the chest was obtained utilizing portable technique. Comparison: Prior chest x-ray of 11/25/17. Heart size appears within normal limits for portable technique. Upper mediastinum is normal. No acute parenchymal densities are seen. Nasogastric tube and endotracheal tube have been removed from prior exam. Bony structures are grossly intact. Impression: 1. Removal of nasogastric tube and endotracheal tube. 2. Nothing acute is appreciated on portable chest x-ray. Diagnostic code #2
[2017-11-26] MEDS ORDERED: chlordiazePOXIDE 25 MG Cap PO SCH (15:00)
[2017-11-26] MEDS ORDERED: Multivitamins,Therapeutic Tab PO ONE (15:00)
[2017-11-26] MEDS: LORazepam 2 MG/ML SDV IVPUSH PRN ×3 (15:18→18:17)
[2017-11-26] MEDS ORDERED: Ibuprofen 600 MG Tab PO PRN (16:39)
[2017-11-26] MEDS: Acetaminophen/Butalbital/Caffeine 325-50-40 MG Tab PO PRN (17:46)
[2017-11-26] MEDS ORDERED: Acetaminophen/HYDROcodone 325-10 MG Tab PO PRN (18:33)
[2017-11-26] MEDS: Oxymetazoline 0.05% Nasal Spray 15 ML Bottle NASBOTH SCH (20:13)
[2017-11-26] MEDS: ALPRAZolam 1 MG Tab PO SCH (20:13)
[2017-11-27] MEDS: Lactated Ringers 1,000 ML IV SCH ×2 (00:55→08:45)
[2017-11-27] MEDS: Acetaminophen/HYDROcodone 325-5 MG Tab PO PRN ×2 (04:20→10:36)
[2017-11-27] MEDS: Enoxaparin 40 MG/0.4 ML Syringe SUBCUT SCH (08:08)
[2017-11-27] MEDS: REMOVE NICOTINE TRDERM SCH (08:10)
[2017-11-27] MEDS: ALPRAZolam 1 MG Tab PO SCH (08:10)
[2017-11-27] MEDS: Oxymetazoline 0.05% Nasal Spray 15 ML Bottle NASBOTH SCH ×2 (08:13→13:05)
[2017-11-27] MEDS ORDERED: Thiamine 100 MG Tab PO SCH (09:00)
[2017-11-27] MEDS ORDERED: DULoxetine 30 MG Cap PO SCH (09:00)
[2017-11-27] MEDS ORDERED: Folic Acid 1 MG Tab PO SCH (09:00)
[2017-11-27] MEDS: Acetaminophen/Butalbital/Caffeine 325-50-40 MG Tab PO PRN (10:50)
--- NOTE | 2017-11-27 11:56 | PCM.DCSUM1 ---
Discharge Summary - Hospital Course Brief History: This is a 56 yo with past medical hx/o anxiety and chronic pain syndrome who was brought in by EMS found unresponsive outside his hotel. In ED, he was difficult to arouse and unable to protect to his airway and therefore he was intubated currently being bagged for respiratory support. His initial labs in ED shows in ED shows a fairly unremarkable CBC and CMP. His UA is not suggestive of UTI. His UDS is presumptive positive for Oxycodone and Benzodiazepine. No family is present at bedside and HPI is very minimal. Patient will be placed on mechanical ventilation and he will be moved to unit for further management. Diagnosis: Stroke: No Modified [place] Scale: No Symptoms at All Modified [place] Scale Score: 0 - Discharge Data Discharge Date: 11/27/17 Discharge Disposition: Home, Self-Care 01 Condition: Good - Discharge Diagnosis/Problem(s) (1) Coma of unknown cause SNOMED Code(s): 384511543 ICD Code: R40.20 - UNSPECIFIED COMA Status: Resolved (2) Seizure SNOMED Code(s): 01328739 ICD Code: R56.9 - UNSPECIFIED CONVULSIONS Status: Resolved Problem Details: - Probable - Had hx/o Seizure in the past per patient (3) Respiratory failure requiring intubation SNOMED Code(s): 436717667 ICD Code: J96.90 - RESPIRATORY FAILURE, UNSP, UNSP W HYPOXIA OR HYPERCAPNIA Status: Resolved (4) Anxiety SNOMED Code(s): 93716728 ICD Code: F41.9 - ANXIETY DISORDER, UNSPECIFIED Status: Acute (5) Chronic pain disorder SNOMED Code(s): 195000530 ICD Code: G89.4 - CHRONIC PAIN SYNDROME Status: Acute (6) Nicotine use disorder SNOMED Code(s): 07996013 ICD Code: F17.200 - NICOTINE DEPENDENCE, UNSPECIFIED, UNCOMPLICATED Status : Acute (7) Head ache SNOMED Code(s): 40460257 ICD Code: R51 - HEADACHE Status: Chronic Qualifiers: Headache type: unspecified Headache chronicity pattern: chronic headache Intractability: not intractable Qualified Code(s): R51 - Headache - Patient Summary/Data Operative Procedure(s) Performed: None Complications: None Consults: Consultations 11/26/17 00:27 Consult to Case Management [CONS] Routine Consult to Gambling Floor Supervisor [CONS] Routine Consult to Spiritual Care [CONS] Routine Respiratory Care Assess and Treatment [CONS] Routine 11/26/17 13:17 Consult to Speech Language Pathology [PROMOTIONS OFFICER Evaluation and Treatment] [CONS] Routine Labs Pending at D/C: None Planned Operative Procedure(s) after DC: None Hospital Course: The patient was admitted primarily for AMS felt to be due to seizure. He was unresponsive and because he was unable to protect his airway, he was intubated and bagged in the emergency department. After he was physically examined in ED, he was immediately placed on mechanical ventilation and sent over to the unit for further management. In less than 12 hrs, he started to wake up and so immediately proceeded to extubate him. The patient did well post extubation. His hospital course was uncomplicated and the rest of his chronic medical illness remained stable during his short stay with us. However, he did have a post extubation fever but his infectious work up yielded no positive results. As for his seizure work up, we were not able to perform an EEG while he was here in that hospital and the study would not be available until Wednesday per RT due to the holiday. We did however consult [facility], client service and consulting manager neurologist and she recommended Keppra 500 mg po BID provided no underlying psychiatric illness that may worsen his symptoms and EEG, of course. On discharge, he was advised not to drive. He was given a prescription for Keppra 500 mg po BID but not to fill until he completes the EEG on Wednesday. He was told to see his PCP immediately after the study for follow up appointment. He was further advised to come back or seek immediate care should his symptoms persist or get worse. The patient and his expressed understanding and in agreement with the plans as discussed above. All questions were answered. Of note, he was provided "return to work note" on 12/01/2017 with the expectation that he will come here Wednesday to get his EEG done. - Patient Instructions Diet: Usual Diet as Tolerated Activity: As Tolerated Driving: Do Not Drive Showering/Bathing: May Shower Notify Provider of: Fever, Increased Pain, Nausea and/or Vomiting Other/Special Instructions: - Please take all new medications as directed. - Resume all home medications as directed. - Continue routine activities as tolerated. - Do not take Kepra until you see your PCP pending EEG result. - It is imperative you get the EEG study on Wednesday. - Call your family doctor for any questions or concerns after discharge. - Follow up with PCP immeidately after you complete your EEG. - Come back or seek immediate care should your symptoms persist or get worse - Discharge Plan *PRESCRIPTION DRUG MONITORING PROGRAM REVIEWED*: Not Applicable *COPY OF PRESCRIPTION DRUG MONITORING REPORT IN PATIENT ODALYS: Not Applicable Prescriptions/Med Rec: Acetaminophen/Butalbital/Caff [Fioricet 325-50-40 MG] 2 tab PO Q8H PRN #30 tablet PRN Reason: Headache levETIRAcetam [Keppra] 500 mg PO BID #60 tab Sennosides/Docusate Sodium [Senokot-S Tablet] 1 each PO BID #60 tablet Varenicline Tartrate [Chantix] 1 each PO ASDIRECTED #1 tab.ds.pk Home Medications: Home Meds ALPRAZolam [Xanax] 1 mg PO BEDTIME 11/30/13 [History] Hydrocodone/Acetaminophen [Hydrocodon-Acetaminophn 10-325] 1 - 2 tab PO Q6H PRN 11/30/13 [History] Hydrocodone/Acetaminophen [Hydrocodone-Acetaminophen 5-325] 1 each PO Q6HR PRN # 20 tablet 11/30/13 [Rx] Carisoprodol [Soma] 350 mg PO PRN 11/26/17 [History] Oxymetazoline HCl [Afrin] 1 spray NS QID 11/26/17 [History] oxyCODONE HCl/Acetaminophen [Oxycodone-Acetaminophen 10-300] 1 each PO QID 11/26 [History] Acetaminophen/Butalbital/Caff [Fioricet 325-50-40 MG] 2 tab PO Q8H PRN #30 tablet 11/27/17 [Rx] DULoxetine [Cymbalta] 60 mg PO DAILY cap 11/27/17 [Rx] Sennosides/Docusate Sodium [Senokot-S Tablet] 1 each PO BID #60 tablet 11/27/17 [Rx] Varenicline Tartrate [Chantix] 1 each PO ASDIRECTED #1 tab.ds.pk 11/27/17 [Rx] levETIRAcetam [Keppra] 500 mg PO BID #60 tab 11/27/17 [Rx] Patient Handouts: Steps to Quit Smoking, [id number], Generalized Anxiety Disorder, Adult, Chronic Pain, Adult, Acute Respiratory Failure, Adult, Seizure , Adult, [id number] Referrals: PCP,None [Primary Care Provider] - - Discharge Summary/Plan Comment DC Time >30 min.: No Discharge Summary/Plan Comment: Discharge to Home - General Info Date of Service: 11/27/17 Admission Dx/Problem (Free Text: Admission Diagnosis/Problem Admission Diagnosis/Problem Coma Subjective Update: Follow Up Functional Status: Reports: Pain Controlled, Tolerating Diet, Ambulating, Urinating - Review of Systems General: Denies: Fever, Weakness, Fatigue HEENT: Reports: No Symptoms Pulmonary: Denies: Shortness of Breath Cardiovascular: Denies: Chest Pain, Palpitations, Dyspnea on Exertion, Edema, Lightheadedness Gastrointestinal: Denies: Abdominal Pain, Nausea, Vomiting Genitourinary: Reports: No Symptoms Musculoskeletal: Reports: No Symptoms Skin: Denies: Cyanosis, Mottled, Pallor, Diaphoresis, Pruritis Neurological: Denies: No Symptoms, Confusion, Numbness, Difficulty Walking, Gait Disturbance Psychiatric: Denies: Confusion, Anxiety, Agitation, Hallucinations - Patient Data Vitals - Most Recent: Last Vital Signs Temp 37.4 C 11/27/17 10:50 Pulse 68 11/27/17 03:56 Resp 22 H 11/27/17 08:00 BP 131/84 11/27/17 08:00 Pulse Ox 98 11/27/17 08:00 Weight - Most Recent: 73.028 kg I&O - Last 24 hours: Intake & Output 11/26/17 11/27/17 11/27/17 22:59 06:59 14:59 Intake Total 2661967 266 Output Total 183 900 Balance 825 1967 1765 Lab Results - Last 24 hrs: Laboratory Results - last 24 hr 11/26/17 11/26/17 11/27/17 Range/Units 12:17 16:45 05:43 WBC 9.98 H (4.23-9.07) K/mm3 RBC 4.23 L (4.63-6.08) M/mm3 Hgb 12.9 L (13.7-17.5) gm/L Hct 39.0 L (40.1-51.0) % MCV 92.2 (79.0-92.2) fl MCH 30.5 (25.7-32.2) pg MCHC 33.1 (32.2-35.5) g/dl RDW Std Deviation 43.6 (35.1-43.9) fL Plt Count 246 (163-337) K/mm3 MPV 9.6 (9.4-12.3) fl Neut % (Auto) 73.3 H (34.0-67.9) % Lymph % (Auto) 14.4 L (21.8-53.1) % [place] % (Auto) 9.3 (5.3-12.2) % Eos % (Auto) 2.6 (0.8-7.0) Baso % (Auto) 0.2 (0.1-1.2) % Neut # (Auto) 7.31 H (1.78-5.38) K/mm3 Lymph # (Auto) 1.44 (1.32-3.57) K/mm3 [place] # (Auto) 0.93 H (0.30-0.82) K/mm3 Eos # (Auto) 0.26 (0.04-0.54) K/mm3 Baso # (Auto) 0.02 (0.01-0.08) K/mm3 POC Glucose 78 (70-105) mg/dL Hemoglobin A1c (4.50-6.20) % Magnesium (1.8-2.4) mg/dl Urine Color Yellow (Yellow) Urine Appearance Clear (Clear) Urine pH 6.5 (5.0-8.0) Ur Specific [place] 1.020 (1.005-1.030) Urine Protein Negative (Negative) Urine Glucose (UA) Negative (Negative) Urine Ketones Negative (Negative) Urine Occult Blood 1+ H (Negative) Urine Nitrite Negative (Negative) Urine Bilirubin Negative (Negative) Urine Urobilinogen 0.2 (0.2-1.0) Ur Leukocyte Esterase Trace H (Negative) Urine RBC 0-5 (0-5) /hpf Urine WBC 5-10 H (0-5) /hpf Ur Epithelial Cells 0-5 (0-5) /hpf Urine Bacteria Few (FEW) /hpf Urine Mucus Not seen (FEW) /hpf 11/27/17 11/27/17 Range/Units 05:43 05:43 WBC (4.23-9.07) K/mm3 RBC (4.63-6.08) M/mm3 Hgb (13.7-17.5) gm/L Hct (40.1-51.0) % MCV (79.0-92.2) fl MCH (25.7-32.2) pg MCHC (32.2-35.5) g/dl RDW Std Deviation (35.1-43.9) fL Plt Count (163-337) K/mm3 MPV (9.4-12.3) fl Neut % (Auto) (34.0-67.9) % Lymph % (Auto) (21.8-53.1) % [place] % (Auto) (5.3-12.2) % Eos % (Auto) (0.8-7.0) Baso % (Auto) (0.1-1.2) % Neut # (Auto) (1.78-5.38) K/mm3 Lymph # (Auto) (1.32-3.57) K/mm3 [place] # (Auto) (0.30-0.82) K/mm3 Eos # (Auto) (0.04-0.54) K/mm3 Baso # (Auto) (0.01-0.08) K/mm3 POC Glucose (70-105) mg/dL Hemoglobin A1c 5.80 (4.50-6.20) % Magnesium 1.9 (1.8-2.4) mg/dl Urine Color (Yellow) Urine Appearance (Clear) Urine pH (5.0-8.0) Ur Specific [place] (1.005-1.030) Urine Protein (Negative) Urine Glucose (UA) (Negative) Urine Ketones (Negative) Urine Occult Blood (Negative) Urine Nitrite (Negative) Urine Bilirubin (Negative) Urine Urobilinogen (0.2-1.0) Ur Leukocyte Esterase (Negative) Urine RBC (0-5) /hpf Urine WBC (0-5) /hpf Ur Epithelial Cells (0-5) /hpf Urine Bacteria (FEW) /hpf Urine Mucus (FEW) /hpf Med Orders - Current: Current Medications Acetaminophen (Tylenol) 650 mg PO Q4H PRN PRN Reason: Pain (Mild 1-3)/fever Last Admin: 11/26/17 15:26 Dose: 650 mg Acetaminophen/Butalbital/Caffeine (Fioricet 325-50-40 Mg) 2 tab PO Q6H PRN PRN Reason: Headache Last Admin: 11/27/17 10:50 Dose: 2 tab Hydrocodone Bitart/Acetaminophen ([place] 325-5 Mg) 1 tab PO Q4H PRN PRN Reason: Pain (moderate 4-6) Last Admin: 11/27/17 10:36 Dose: 1 tab Albuterol/Ipratropium (Duoneb 3.0-0.5 Mg/3 Ml) 3 ml NEB Q4H PRN PRN Reason: Shortness Of Breath/wheezing Alprazolam (Xanax) 1 mg PO BID [facility] Last Admin: 11/27/17 08:10 Dose: 1 mg Bisacodyl (Dulcolax) 5 mg PO DAILY PRN PRN Reason: Constipation Chlordiazepoxide HCl (Librium) 0 mg PO ASDIRECTED [facility]; Protocol Clonidine HCl (Catapres) 0.1 mg PO Q4H PRN PRN Reason: Agitation Last Admin: 11/26/17 15:10 Dose: 0.1 mg Docusate Sodium (Colace) 100 mg PO BID PRN PRN Reason: Constipation Duloxetine HCl (Cymbalta) 60 mg PO DAILY [facility] Last Admin: 11/27/17 08:10 Dose: 60 mg Enoxaparin Sodium (Lovenox) 40 mg SUBCUT DAILY [facility] Last Admin: 11/27/17 08:08 Dose: 40 mg Folic Acid (Folic Acid) 1 mg PO DAILY [facility] Stop: 11/29/17 09:01 Last Admin: 11/27/17 08:10 Dose: 1 mg Haloperidol Lactate (Haldol) 2 mg IM Q4H PRN PRN Reason: Agitation Hydralazine HCl (Apresoline) 20 mg IVPUSH Q4H PRN PRN Reason: Hypertension Hydromorphone HCl (Dilaudid) 0.25 mg IVPUSH Q2H PRN PRN Reason: Pain (severe 7-10) Lactated Ringer's (Ringers, Lactated) 1,000 mls @ 125 mls/hr IV ASDIRECTED [facility] Last Admin: 11/27/17 08:45 Dose: 125 mls/hr Promethazine HCl 12.5 mg/ (Sodium Chloride) 50.5 mls @ 100 mls/hr IV Q6H PRN PRN Reason: Nausea/Vomiting Ibuprofen (Motrin) 600 mg PO Q6H PRN PRN Reason: Fever Last Admin: 11/26/17 16:59 Dose: 600 mg Lorazepam (Ativan) 1 mg IV Q6H PRN PRN Reason: Anxiety Last Admin: 11/26/17 03:06 Dose: 1 mg Lorazepam (Ativan) 2 mg IVPUSH Q4H PRN; Protocol PRN Reason: Withdrawal Symptoms Last Admin: 11/26/17 18:17 Dose: 1 mg Magnesium Hydroxide (Milk Of Magnesia) 30 ml PO Q12H PRN PRN Reason: Constipation Magnesium Sulfate (Pharmacy To Dose - Magnesium Replacement) 0 dose .XX ASDIRECTED PRN PRN Reason: RX TO WATCH MAG Metoprolol Tartrate (Lopressor) 5 mg IVPUSH Q4H PRN PRN Reason: Tachycardia Miscellaneous Information (Remove Patch) 0 ea TRDERM DAILY [facility] Last Admin: 11/27/17 08:10 Dose: Not Given Nicotine (Habitrol) 21 mg TRDERM DAILY PRN PRN Reason: Nicotine Dependence Last Admin: 11/26/17 15:49 Dose: 21 mg Ondansetron HCl (Zofran) 4 mg IV Q6H PRN PRN Reason: Nausea/Vomiting Oxymetazoline HCl (Afrin Original 0.05% Nasal [place]) 0 ml NASBOTH QID [facility] Last Admin: 11/27/17 08:13 Dose: 1 spray Polyethylene Glycol (Miralax) 17 gm PO DAILY PRN PRN Reason: Constipation Potassium Chloride (Pharmacy To Dose - Potassium Replacement) 0 dose .XX ASDIRECTED PRN PRN Reason: RX TO WATCH K Senna/Docusate Sodium (Senna Plus) 1 tab PO BID PRN PRN Reason: Constipation Thiamine HCl (Vitamin B-1) 100 mg PO DAILY [facility] Last Admin: 11/27/17 08:10 Dose: 100 mg Discontinued Medications Hydrocodone Bitart/Acetaminophen ([place] 325-10 Mg) 1 - 2 tab PO Q4H PRN PRN Reason: back pain Dextrose/Water (Dextrose 50% In Water) Confirm Administered Dose 50 ml .ROUTE .STK-MED ONE Stop: 11/25/17 22:40 Last Admin: 11/26/17 01:57 Dose: 50 ml Etomidate (Amidate) 40 mg IVPUSH .STK-MED ONE Stop: 11/26/17 01:01 Propofol (Diprivan 100 Ml) Confirm Administered Dose 100 mls @ as directed .ROUTE .STK-MED ONE Stop: 11/25/17 22:55 Last Admin: 11/26/17 01:58 Dose: Not Given Pantoprazole Sodium 80 mg/ (Sodium Chloride) 100 mls @ 10 mls/hr IV Q10H [facility] Last Admin: 11/26/17 11:07 Dose: Not Given Sodium Chloride (Normal Saline) 1,000 mls @ 999 mls/hr IV ONETIME ONE Stop: 11/26/17 01:32 Last Admin: 11/26/17 01:55 Dose: 999 mls/hr Propofol (Diprivan 100 Ml) Confirm Administered Dose 100 mls @ as directed .ROUTE .STK-MED ONE Stop: 11/26/17 00:57 Last Admin: 11/26/17 01:35 Dose: Not Given Propofol (Diprivan 100 Ml) 100 mls @ 2.177 mls/hr IV TITRATE JUSTIN; Protocol Last Titration: 11/26/17 12:50 Dose: 0 mcg/kg/min, 0 mls/hr Potassium Chloride 10 meq/ (Premix) 100 mls @ 100 mls/hr IV Q1H [facility] Stop: 11/26/17 05:59 Last Admin: 11/26/17 05:56 Dose: 100 mls/hr Fentanyl 2,500 mcg/ Sodium (Chloride) 250 mls @ 1 mls/hr IV TITRATE JUSTIN; Protocol Last Titration: 11/26/17 14:06 Dose: Infused Midazolam HCl (Versed 1 Mg/Ml) 5 mg .ROUTE .STK-MED ONE Stop: 11/26/17 01:01 Multivitamins (Thera) 1 each PO ONETIME ONE Stop: 11/26/17 15:01 Last Admin: 11/26/17 16:59 Dose: 1 each Nicotine (Habitrol) 21 mg TRDERM DAILY PRN PRN Reason: Nicotine Dependence Potassium Chloride (Klor-Con M20) 40 meq PO Q4H [facility]IN Stop: 11/26/17 05:01 Last Admin: 11/26/17 03:23 Dose: Not Given Propofol (Diprivan 20 Ml) 200 mg .ROUTE .STK-MED ONE Stop: 11/26/17 01:01 Succinylcholine Chloride (Quelicin) 200 mg .ROUTE .STK-MED ONE Stop: 11/26/17 01:01 - Exam General: Reports: Alert, Oriented, Cooperative, No Acute Distress HEENT: Reports: Pupils Equal, Pupils Reactive, EOMI, Mucous Membr. Moist/[place] Neck: Reports: Supple, Trachea Midline Lungs: Reports: Clear to Auscultation, Normal Respiratory Effort Cardiovascular: Reports: Regular Rate, Regular Rhythm, No Murmurs GI/Abdominal Exam: Normal Bowel Sounds, Soft, Non-Tender, No Organomegaly, No Distention, No Abnormal Bruit (Male) Exam: Deferred Rectal (Males) Exam: Deferred Back Exam: Reports: Normal Inspection, Full Range of Motion Extremities: Normal Inspection, Normal Range of Motion, Non-Tender, No Pedal Edema, Normal Capillary Refill Skin: Reports: Warm, Dry, Intact Neurological: Reports: No New Focal Deficit Psy/Mental Status: Reports: Alert, Normal Affect, Normal Mood
== END 2017-11-27 12:57 | disposition home or self-care (01) | DRG 100 ==
LOC: JD.ED 22:27 → JD.ICU 11-26 00:17
PROVIDERS: ADMIT Internal Medicine; ATTEND Internal Medicine
PROC: 5A1935Z Respiratory Ventilation, Less than 24 Consecutive Hours (ICD-10-PCS; principal; 2017-11-26)
PROC: 0BH17EZ Insertion of Endotracheal Airway into Trachea, Via Natural or Artificial Opening (ICD-10-PCS; 2017-11-26)
DX: R56.9 Unspecified convulsions (principal); J96.90 Respiratory failure, unspecified, unspecified whether with hypoxia or hypercapnia; F41.9 Anxiety disorder, unspecified; G89.4 Chronic pain syndrome; F17.200 Nicotine dependence, unspecified, uncomplicated; R50.9 Fever, unspecified; Z88.0 Allergy status to penicillin; Z79.899 Other long term (current) drug therapy
CPT/HCPCS: 31500; 36415; 51702; 70450; 71045; 71045-26; 72125; 80053; 80306; 81001; 81003; 82962; 83036; 83605; 83735; 85007; 85025; 85027; 85610; 85730; 87040; 92610-GN; 94002; 94003; 96361; 96365; 96366; 96375; 99285-25; A9270-GY; C9113; G0480; J0330; J1650; J2060; J2250; J2704; J3010; J3480; J3490; J7030; J7040; J7050; J7060; J7120